=== PATIENT | female | born 1985 | race Caucasian/White ===

== ENCOUNTER 2016-10-15 20:57 | Emergency (ER) | payer MEDICAID, OTHER ==
[~2016-10-15] VITALS: Ht 177.8 cm; Wt 63.0 kg
[~2016-10-15 20:57] MED LIST: HYDR50 PO
[2016-10-15 20:58] VITALS: BP 141/68; PULSE 87; RESP 14; TEMP 98; O2SAT 96
[2016-10-15] MEDS ORDERED: SODIUM CHLOR 0.9% 1000 ML INJ 1,000 ML IV ONE (22:29)
--- NOTE | 2016-10-15 22:43 | PD ---
HPI Chief Complaint: Related Problem Time Seen by Provider: 22:26 Travel History International Travel<30 days: No Contact w/Intl Traveler<30days: No Traveled to known affect area: No History of Present Illness HPI The patient is a whose last menstrual cycle was on July 30, 2016. The patient states she thinks she is approximately 10 weeks . The patient notes her last several days she's had some lower abdominal cramping that radiates to the back as well as brown discharge when she wipes. She denies any actual vaginal bleeding. She denies any dysuria, frequency, or urgency. She does have a history of 2 previous miscarriages as well as a history of previous full-term delivery via section. The patient denies any nausea, vomiting, upper abdominal pain, or diarrhea. Symptoms are mild to moderate, no known alleviating or exacerbating factors. The patient has an appointment next month at the [facility] [employer]. PFSH Past Medical History ?: LMP: 07/30/16 : 2 Para: 1 Miscarriage: 1 Past Surgical History Section: Yes (2005) Tonsillectomy: Yes (1998) Social History Alcohol Use: Yes Tobacco Use: Yes Substance Use: Yes Allergies-Medications (Allergen,Severity, Reaction): Coded Allergies: Augmentin (Verified Allergy, Severe, 10/15/16) Cipro (Verified Allergy, Severe, 10/15/16) Reported Meds & Prescriptions Reported Meds & Active Scripts Active Vistaril 50 Mg Cap (Hydroxyzine Pamoate) 50 Mg Cap 50 Mg PO Q6H PRN Review of Systems Except as stated in HPI: all other systems reviewed are Neg HENT: No: Lightheadedness Cardiovascular: No: Chest Pain or Discomfort Respiratory: No: Shortness of Breath Gastrointestinal: No: Nausea, Vomiting, Diarrhea, Abdominal Pain Genitourinary: Positive: Pelvic Pain, Discharge, No: Urgency, Frequency, Dysuria, Vaginal Bleeding Physical Exam Narrative GENERAL: Awake, alert, pleasant 31-year-old female who appears her stated age and is in no acute respiratory distress. SKIN: Warm and dry. HEAD: Atraumatic. Normocephalic. EYES: No injection or drainage. ENT: No nasal bleeding or discharge. Mucous membranes pink and moist. NECK: Trachea midline. No JVD. GASTROINTESTINAL: Abdomen soft, non-tender, nondistended. No rebound tenderness. No suprapubic tenderness. Genitourinary: The pelvic exam was performed in the presence of a female nurse. External examination reveals no rashes or lesions. Speculum examination reveals an anterior cervix, closed, no obvious blood. Scant thick white discharge in the vaginal vault. Normal exam. Back: No CVA tenderness. MUSCULOSKELETAL: No obvious deformities. No clubbing. No cyanosis. No edema. NEUROLOGICAL: Awake and alert. No obvious cranial nerve deficits. Motor grossly within normal limits. Normal speech. PSYCHIATRIC: Appropriate mood and affect; insight and judgment normal. Data Data Last Documented VS Vital Signs Date Time Temp Pulse Resp B/P Pulse Ox O2 Delivery O2 Flow Rate FiO2 10/15/16 23:29 16 10/15/16 20:58 98.0 87 141/68 96 Room Air Orders Beta Hcg (Quant/Titer) (10/15/16 22:29) Gc And Chlamydia Pcr (10/15/16 22:29) Complete Rh (10/15/16 22:29) Wet Prep Profile (10/15/16 22:29) Urinalysis - C+S If Indicated (10/15/16 22:29) Iv Access Insert/Monitor (10/15/16 22:29) Sodium Chlor 0.9% 1000 Ml Inj (Ns 1000 M (10/15/16 22:29) Ed Urine Pregnancytest Poc (10/15/16 22:29) Us Pelvis (Ques Pr/Ect)W Trans (10/15/16 ) Labs Laboratory Tests Test 10/15/16 10/15/16 10/16/16 23:20 23:25 00:35 Urine Color YELLOW Urine Turbidity CLEAR Urine pH 7.0 Urine Specific [place] 1.011 Urine Protein NEG mg/dL Urine Glucose (UA) NEG mg/dL Urine Ketones NEG mg/dL Urine Occult Blood NEG Urine Nitrite NEG Urine Bilirubin NEG Urine Urobilinogen LESS THAN 2.0 MG/DL Urine Leukocyte Esterase NEG Urine RBC LESS THAN 1 /hpf Urine Squamous Epithelial <1 /hpf Cells Urine Mucus FEW /lpf Microscopic Urinalysis Comment CULT NOT INDICATED Blood Type O POSITIVE Rho(D) Type POSITIVE Human Chorionic Gonadotropin, 10839 MIU/ML Quant Clue Cells (Wet Prep) NONE SEEN Vaginal Trichomonas (Wet Prep) NONE SEEN Vaginal Yeast (Wet Prep) NONE SEEN MDM Medical Decision Making Medical Screen Exam Complete: Yes Emergency Medical Condition: Yes Medical Record Reviewed: Yes Interpretation(s) Ultrasound pelvis reveals single live IUP at 10 weeks 3 days. Laboratory Tests Test 10/15/16 10/15/16 10/16/16 23:20 23:25 00:35 Urine Color YELLOW Urine Turbidity CLEAR Urine pH 7.0 Urine Specific [place] 1.011 Urine Protein NEG mg/dL Urine Glucose (UA) NEG mg/dL Urine Ketones NEG mg/dL Urine Occult Blood NEG Urine Nitrite NEG Urine Bilirubin NEG Urine Urobilinogen LESS THAN 2.0 MG/DL Urine Leukocyte Esterase NEG Urine RBC LESS THAN 1 /hpf Urine Squamous Epithelial <1 /hpf Cells Urine Mucus FEW /lpf Microscopic Urinalysis Comment CULT NOT INDICATED Blood Type O POSITIVE Rho(D) Type POSITIVE Human Chorionic Gonadotropin, 24151 MIU/ML Quant Clue Cells (Wet Prep) NONE SEEN Vaginal Trichomonas (Wet Prep) NONE SEEN Vaginal Yeast (Wet Prep) NONE SEEN Differential Diagnosis Differential diagnosis includes threatened , , vaginitis, cervicitis, PID, UTI, ectopic . Narrative Course IV was established, labs are drawn and sent, and the patient was placed on cardiac telemetry monitoring and continuous pulse oximetry monitoring. Bedside ultrasound was performed, is unable to visualize an IUP, therefore, formal ultrasound was performed. A pelvic exam was performed in the presence of a female nurse and wet prep was sent to lab. The patient is O+, therefore, no indication for RhoGAM. Bedside UA test was positive. Formal beta hCG level was ordered. Ultrasound reveals IUP at 10 weeks 3 days, wet prep is negative. The patient is advised to take a vitamin and a follow-up with her video game creator as scheduled. Return if symptoms worsen or progress. Procedures Procedure Narrative A bedside ultrasound was performed with a curvilinear probe, I was unable to visualize an IUP. The patient tolerated the procedure without difficulty and there was no obvious complications. Diagnosis Primary Impression: Qualified Code: Z33.1 - , unspecified gestational age Patient Instructions: General Instructions Additional Instructions: Please provide the patient a copy of her ultrasound results and lab results at discharge. Follow-up with your video game creator as scheduled. Continue to take a vitamin daily. Return if symptoms worsen or progress. Disposition: 01 DISCHARGE HOME Condition: Stable Frank Bai MD Oct 15, 2016 22:43
[2016-10-15 23:38] LABS: BLOOD, URINE NEG (NEG); GLUCOSE,URINE NEG (NEG); KETONE, URINE NEG (NEG); MUCUS URINE FEW /lpf (OCC); NITRITE,URINE NEG (NEG); SQUAMOUS EPITHELIAL CELL URINE <1 /hpf (0-5); URINE COLOR YELLOW (YELLW/STRAW)
[2016-10-15 23:39] LABS: COMMENT (UR) CULT NOT INDICATED; CULTURE IF INDICATED CULT NOT INDICATED
[2016-10-16 00:10] LABS: BETA HCG QUANT 38180 MIU/ML (0-5)
--- NOTE | 2016-10-16 01:11 | RADRPT ---
EXAM DATE/TIME: 10/16/2016 00:14 [place] COMPARISON: No previous studies available for comparison. INDICATIONS : Cramping with . LAB(S): Beta-hC,180 MEDICAL HISTORY : . SURGICAL HISTORY : Tonsillectomy. ACL repair. ENCOUNTER: Initial ACUITY: 1 day PAIN SCORE: 2/10 LOCATION: Bilateral pelvis MEASUREMENTS: LEFT OVARY: 4.0 x 2.1 x 2.9 cm UTERUS: 10.2 x 7.0 x 10.1 cm ENDOMETRIAL STRIPE: >20 mm RIGHT OVARY: 3.7 x 2.2 x 3.9 cm FINDINGS: UTERUS: There is a single live IUP identified. The crown rump length measured 3.56 cm corresponding to gestat ional age of 10 weeks 3 days. RIGHT OVARY: There is some mild cystic change seen in the right ovary with all the cysts measuring less than 1 cm. There is a complex cyst would be round septation measuring 0.7 cm at the right ovary. LEFT OVARY: Ovary contains no mass or significant cystic lesion. MISCELLANEOUS: No free fluid. CONCLUSION: Single live IUP at 10 weeks 3 days. Polo Baum MD on October 16, 2016 at 1:06 Board Certified Radiologist. This report was verified electronically.
[2016-10-16 04:04] LABS: CHLAMYDIA PCR NOT DETECTED (NOT DETECT); NEISSERIA PCR NOT DETECTED (NOT DETECT)
[2016-10-20] MEDS ORDERED: MACR100C2 PO (08:53)
[2016-11-06] MEDS ORDERED: PRENTAB60 (10:06)
== END 2016-10-16 01:37 | disposition home or self-care (01) ==
LOC: NEPE 20:57
DX: O26.891 Other specified pregnancy related conditions, first trimester (principal); R10.2 Pelvic and perineal pain; Z3A.10 10 weeks gestation of pregnancy
CPT/HCPCS: 76700; 76817; 81001; 84702; 84703; 86901; 87210; 87491; 87591; 99284; J7030

== ENCOUNTER → 2016-10-30 | Outpatient (CLI) | payer OTHER ==
[~2016-10-30] MED LIST changes: -HYDR50 PO; +MACR100C2 PO; +PRENTAB60
== END ==
LOC: HPND 08:32
PROVIDERS: ATTEND Obstetrics & Gynecology
DX: O34.01 Maternal care for unspecified congenital malformation of uterus, first trimester (principal); Z3A.13 13 weeks gestation of pregnancy
CPT/HCPCS: 76801; 76817

== ENCOUNTER 2016-11-20 12:16 | Emergency (ER) | payer OTHER ==
[~2016-11-20 12:16] MED LIST changes: -MACR100C2 PO
[2016-11-20 13:11] VITALS: BP 100/53; PULSE 87
[2016-11-20 13:12] VITALS: RESP 20; TEMP 98
--- NOTE | 2016-11-20 13:13 | PD ---
HPI Chief Complaint Sharp lower abdominal pain Date Seen: Nov 20, 2016 Time Seen: 12:55 (Walter Solis MD R1) Travel History International Travel<30 Days: No Contact w/Intl Traveler<30Days: No Known Affected Area: No (Walter Solis MD) History of Present Illness HPI Patient is a 31 year old at 15/6 weeks gestation presents to OB ED with complaints of sharp lower abdominal pain beginning last Thursday. She denies any LOF, VB, or any other vaginal discharge. Denies vaginal irritation. She does report sexual intercourse about 4 days ago which was after the onset of her abdominal pain. She reports her pain following intercourse has not worsened. Denies dysuria or hematuria. Para: 1 : 4 Miscarriage: 2 (Walter Solis MD) History Past Medical History Medical History: Denies Significant Hx (Walter Solis MD) Obstetric History Obstetric History First ending in section on 09/07/2005 at 36.5 weeks gestation to a 8 lbs 6.5 oz male, indication for she states was fetus with lymphangioma (Walter Solis MD) Past Surgical History Narrative Surgical ACL repair (Walter Solis MD) Family History Family History: Negative (Walter Solis MD) Social History Alcohol Use: Yes (Reports etoh intake before learning she was ; no intake afterwards) Tobacco Use: Yes (Quit smoking once finding out she was ) Substance Abuse: No (Walter Solis MD R1) Allergies-Medications (Allergen,Severity, Reaction): Coded Allergies: Augmentin (Verified Allergy, Severe, 11/06/16) Cipro (Verified Allergy, Severe, 11/06/16) Home Meds Reported Medications Vit W/ Docusate-Fe Fu ( 19)1 Tab Tab 11/06/16 Review of Systems Except as stated in HPI: all other systems reviewed are Neg (Walter Solis MD R1) Physical Exam Narrative GENERAL: Well-nourished, well-developed patient. SKIN: Warm and dry. HEAD: Normocephalic and atraumatic. EYES: No scleral icterus. No injection or drainage. ENT: No nasal drainage noted. Mucous membranes pink. Airway patent. NECK: Supple, trachea midline. No JVD. CARDIOVASCULAR: Regular rate and rhythm without murmurs, gallops, or rubs. RESPIRATORY: Breath sounds equal bilaterally. No accessory muscle use. BREASTS: Bilateral exam showed no masses , no retractions, no nipple discharge. ABDOMEN/GI: Abdomen soft, non-tender, bowel sounds present, no rebound, no guarding Gravid to ~16 weeks size GENITOURINARY: External Genitalia: normal and intact in appearance Cervix: thick and closed Dilatation: [-] Effacement: [-] Station: [-] Presentation: [-] Membranes: [-] Uterine Contractions: [-] FHT's: Category: [-] Baseline: [-] Reactive: [-] Variability: [-] Decels: [-] EXTREMITIES: No cyanosis or edema. BACK: Nontender without obvious deformity. No CVA tenderness. NEUROLOGICAL: Awake and alert. Motor and sensory grossly within normal limits. Normal speech. (Walter Solis MD R1) Data Data Vital Signs Reviewed: Yes Orders Vital Signs (Adult) .ON ADMISSION (11/20/16 13:00) ^ Labor Status (11/20/16 13:00) Urinalysis - C+S If Indicated (11/20/16 13:00) (Walter Solis MD R1) [facility] Medical Record Reviewed: Yes Plan Patient is a 31 year old at 15/6 weeks gestation based on an ultrasound on 10/30/16 presented with complaints of sharp lower abdominal pain beginning last Jason. 1. IUP, round ligament pain - Ultrasound from 10/30/2016 showing a GA of 12/6 weeks, no gross anomalies , no uterine masses or abnormalities, b/l adnexa normal, no free fluid - Ultrasound performed in ED showing a BPD c/w 15/6 weeks gestation, FHR of 150 bpm - Cervix is closed and thick - UA is clean - GC & Chlamydia - Advised to use Tylenol prn pain - Encouraged oral hydration - [facility] for continued routine care sdw Dr. Warren (Walter Solis MD R1) Diagnosis Diagnosis: Primary Impression: Round ligament pain Additional Impression: Intrauterine Disposition: 01 DISCHARGE HOME Condition: Stable Patient Instructions: Abdominal Pain in (ED), Early Labor Signs (ED) , Urinary Tract Infection in (ED), General Instructions Addendum Remarks I rounded on the patient. I rounded with the resident. I reviewed the resident' s assessment and plan of care for this patient. I am in agreement with the plan of care for this patient. GC Chlamydia negative (Annabelle Ardon MD) Walter Solis MD R1 Nov 20, 2016 13:13 Annabelle Ardon MD Nov 21, 2016 04:29
[2016-11-20 14:24] LABS: BLOOD, URINE NEG (NEG); GLUCOSE,URINE NEG (NEG); KETONE, URINE NEG (NEG); MUCUS URINE FEW /lpf (OCC); NITRITE,URINE NEG (NEG); SQUAMOUS EPITHELIAL CELL URINE 3 /hpf (0-5); URINE COLOR YELLOW (YELLW/STRAW)
[2016-11-20 14:27] LABS: COMMENT (UR) CULT NOT INDICATED; CULTURE IF INDICATED CULT NOT INDICATED
[2016-11-20 16:31] LABS: CHLAMYDIA PCR NOT DETECTED (NOT DETECT); NEISSERIA PCR NOT DETECTED (NOT DETECT)
== END 2016-11-20 14:23 | disposition home or self-care (01) ==
LOC: HOBED 12:16
DX: O26.892 Other specified pregnancy related conditions, second trimester (principal); R10.2 Pelvic and perineal pain; Z3A.15 15 weeks gestation of pregnancy
CPT/HCPCS: 76815; 81001; 87491; 87591

== ENCOUNTER 2016-12-22 16:21 | Emergency (ER) | payer OTHER ==
--- NOTE | 2016-12-22 16:39 | PD ---
HPI Chief Complaint dizziness, headache, "heart fluttering" Date Seen: December 22, 2016 (Brennan Rowe MD R2) Travel History International Travel<30 Days: No Contact w/Intl Traveler<30Days: No (Brennan Rowe MD R2) History of Present Illness HPI Ms. Darby is a 31 yo at 20 1/7 weeks (KATHIA ) who presents with complaints of dizziness, headache, and "heart fluttering." Patient states that she has had a headache that has been predominately constant for the past week; it is posterior and left sided. Patient also states that she is having increasing dizziness/lightheadedness since Thursday. Patient states that this lightheadedness can occur at any time and not just when rising from seated position. Patient states that she had these symptoms previously when standing from seated position, but that she feels it is worsening and can occur at any time. Patient states that this weekend she felt "heart fluttering" and sweating along with lightheadedness, and was worried she might have a syncopal episode. Patient states that she believes that she has been having adequate intake of fluids and food. Patient denies vaginal bleeding or loss of vaginal fluid. Patient states that she is able to feel her fetus move. Regarding heart fluttering, patient states that she felt her heart pounding but it did not beat fast. Patient denies history of cardiovascular disease. No shortness of breath or leg swelling. No nausea/vomiting, dysuria, or other symptoms reported. records reviewed: labs WNL. US at 12 6/7 weeks without abnormality. Para: 1 : 4 Miscarriage: 2 (Brennan Rowe MD R2) History Past Medical History Narrative Medical Patient states that she gets hypoglycemic (Brennan Rowe MD R2) Obstetric History Obstetric History G4 0121 One vaginal delivery at 36.5 weeks 2 miscarriages (Brennan Rowe MD R2) Past Surgical History Narrative Surgical CS x1 11 years ago- planned due fetus anomalies- lymphangioma and cystic hydroma (Brennan Rowe MD R2) Family History Narrative Family History Adopted Family History: Negative (Brennan Rowe MD R2) Social History Alcohol Use: No Tobacco Use: No Substance Abuse: No (Brennan Rowe MD R2) Allergies-Medications (Allergen,Severity, Reaction): Coded Allergies: Augmentin (Verified Allergy, Severe, 12/04/16) Cipro (Verified Allergy, Severe, 12/04/16) Home Meds Reported Medications Vit W/ Docusate-Fe Fu ( 19)1 Tab Tab 11/06/16 Review of Systems HENT: Headaches Cardiovascular: Palpitations (Brennan Rowe MD R2) Physical Exam 117/59 HR 96 Afebrile RR 18 Narrative GENERAL: Well-nourished, well-developed patient. SKIN: Warm and dry. HEAD: Normocephalic and atraumatic. EYES: No scleral icterus. No injection or drainage. ENT: No nasal drainage noted. Mucous membranes pink. Airway patent. NECK: Supple, trachea midline. No JVD. CARDIOVASCULAR: Regular rate and rhythm without murmurs RESPIRATORY: Breath sounds equal bilaterally. No accessory muscle use. EXTREMITIES: No cyanosis or edema. NEUROLOGICAL: Awake and alert. Motor and sensory function grossly within normal limits. ABDOMEN/GI: Abdomen soft, non-tender, bowel sounds present, no rebound, no guarding Gravid FHT's: [id number] (Brennan Rowe MD R2) MDM Medical Record Reviewed: Yes Narrative Course / MDM 31 yo at 20 1/7 weeks (KATHIA ) who presents with complaints of dizziness, headache, and "heart fluttering." -Reassuring physical exam- no cardiac or neurological abnormalities Plan: Discussed with patient that her symptoms are likely secondary to 2nd trimester physiologic changes of . Patient reassured, and given counselling regarding safe medications in for headache. Patient will follow-up with Dafne Walls on as scheduled (Brennan Rowe MD R2) Attending Attestation The exam, history, and the medical decision-making described in the above note were completed with the assistance of the resident provider. I reviewed and agree with the findings presented. I attest that I had a [id number] encounter with the patient on the same day, and personally performed and documented my assessment and findings in the medical record. discussed physiologic changes of . discussed adequate hydration with water, eating meal or snack with protein/fat every 3-4 hours, OTC meds safe in (Maddy Ortega MD) Diagnosis Diagnosis: Primary Impression: Headache in Additional Impression: Dizziness Disposition: 01 DISCHARGE HOME Condition: Stable Patient Instructions: General Instructions Brennan Rowe MD R2 December 22, 2016 16:39 Maddy Ortega MD December 22, 2016 17:32
== END 2016-12-22 17:24 | disposition home or self-care (01) ==
LOC: HOBED 16:21
DX: O26.892 Other specified pregnancy related conditions, second trimester (principal); R51 Headache; R42 Dizziness and giddiness; I49.8 Other specified cardiac arrhythmias
CPT/HCPCS: 99284

== ENCOUNTER 2017-01-31 22:01 | Emergency (ER) | payer OTHER ==
--- NOTE | 2017-01-31 22:58 | PD ---
HPI Chief Complaint Upper abdominal cramping Date Seen: Jan 31, 2017 Time Seen: 22:45 Travel History International Travel<30 Days: No Contact w/Intl Traveler<30Days: No Known Affected Area: No History of Present Illness HPI 31-year-old 4 para 1 AB 2 at 26+ weeks gestation with an EDC of 05/06/17 who comes tonight with a 2 hour history of upper abdominal cramping. She denies any bleeding, discharge, leakage of fluid. No nausea vomiting or diarrhea. The cramping was not alleviated by hydration. Para: 1 : 4 Miscarriage: 2 History Past Medical History Medical History: Denies Significant Hx Obstetric History Obstetric History Prior 35 week for cystic hygroma, desires Past Surgical History Narrative Surgical Knee, tonsils, Family History Family History: Negative Social History Alcohol Use: No Tobacco Use: No Substance Abuse: No Allergies-Medications (Allergen,Severity, Reaction): Coded Allergies: Augmentin (Verified Allergy, Severe, 01/28/17) Cipro (Verified Allergy, Severe, 01/28/17) Home Meds Reported Medications Vit W/ Docusate-Fe Fu ( 19)1 Tab Tab 11/06/16 Review of Systems Except as stated in HPI: all other systems reviewed are Neg Physical Exam Narrative GENERAL: Well-nourished, well-developed patient. SKIN: Warm and dry. HEAD: Normocephalic and atraumatic. EYES: No scleral icterus. No injection or drainage. ENT: No nasal drainage noted. Mucous membranes pink. Airway patent. NECK: Supple, trachea midline. No JVD. CARDIOVASCULAR: Regular rate and rhythm without murmurs, gallops, or rubs. RESPIRATORY: Breath sounds equal bilaterally. No accessory muscle use. ABDOMEN/GI: Abdomen soft, non-tender, bowel sounds present, no rebound, no guarding Gravid to [-] weeks size Fundal Height: [25-] GENITOURINARY: External Genitalia: intact and normal in appearance BUS glands: [-] Cervix: [-] Dilatation: [Closed-] Effacement: [-Long] Station: [-High] Presentation: [-] Membranes: [intact ] Uterine Contractions: [None-] FHT's: Category: [1-] Baseline: [137-] Reactive: [-] Variability: [-] Decels: [-] EXTREMITIES: No cyanosis or edema. BACK: Nontender without obvious deformity. No CVA tenderness. NEUROLOGICAL: Awake and alert. Motor and sensory grossly within normal limits. Five out of 5 muscle strength in all muscle groups. Normal speech. Data Data Vital Signs Reviewed: Yes MDM Medical Record Reviewed: Yes Narrative Course / MDM Assessment: 26+ week with upper abdominal cramping, no evidence of acute abdominal symptoms or labor Plan: Continue to monitor for any additional symptoms. Continue routine care visits Diagnosis Diagnosis: Primary Impression: 26 weeks gestation of Additional Impression: Abdominal pain during in second trimester Disposition: 01 DISCHARGE HOME Condition: Good Mike Willams MD Jan 31, 2017 22:58
== END 2017-02-01 10:03 | disposition home or self-care (01) ==
LOC: HOBED 22:01
DX: O26.892 Other specified pregnancy related conditions, second trimester (principal); R10.9 Unspecified abdominal pain; Z3A.26 26 weeks gestation of pregnancy
CPT/HCPCS: 99281

== ENCOUNTER 2017-02-25 04:14 | Emergency (ER) | payer OTHER ==
--- NOTE | 2017-02-25 05:03 | PD ---
HPI Chief Complaint Passed mucous earlier this am, some cramping Date Seen: Feb 25, 2017 Time Seen: 04:57 Travel History International Travel<30 Days: No Contact w/Intl Traveler<30Days: No Known Affected Area: No History of Present Illness HPI 31 yo at 30 weeks gestation who woke up, went to bathroom and noticed some mucous passed into the toilet. Patient c/o mild cramping at home x 2 hours, none presently. Previous episode of cramping last week. No h/o delivery. Para: 1 : 4 Miscarriage: 1 History Past Medical History Medical History: Denies Significant Hx Obstetric History Obstetric History 8#4oz Past Surgical History Narrative Surgical tonsils knee Family History Family History: Negative Social History Alcohol Use: No Tobacco Use: No Substance Abuse: No Allergies-Medications (Allergen,Severity, Reaction): Coded Allergies: Augmentin (Verified Allergy, Severe, 02/12/17) Cipro (Verified Allergy, Severe, 02/12/17) Home Meds Reported Medications Vit W/ Docusate-Fe Fu ( 19)1 Tab Tab 11/06/16 Review of Systems Except as stated in HPI: all other systems reviewed are Neg Physical Exam Narrative GENERAL: Well-nourished, well-developed patient. SKIN: Warm and dry. HEAD: Normocephalic and atraumatic. EYES: No scleral icterus. No injection or drainage. ENT: No nasal drainage noted. Mucous membranes pink. Airway patent. NECK: Supple, trachea midline. No JVD. CARDIOVASCULAR: Regular rate and rhythm without murmurs, gallops, or rubs. RESPIRATORY: Breath sounds equal bilaterally. No accessory muscle use. BREASTS: Bilateral exam showed no masses , no retractions, no nipple discharge. ABDOMEN/GI: Abdomen soft, non-tender, bowel sounds present, no rebound, no guarding Gravid to [-] weeks size Fundal Height: [-30] GENITOURINARY: External Genitalia: intact and normal in appearance BUS glands: [-nl] Cervix: [-posterior] Dilatation: [-closed] Effacement: [-o%] Station: [-3-] Presentation: [-vwertex, ballotable] Membranes: [intact ] Uterine Contractions: [none-] FHT's: Category: [1-] Baseline: [150-] Reactive: [-mod] Variability: [mod-] Decels: [-absent] EXTREMITIES: No cyanosis or edema. BACK: Nontender without obvious deformity. No CVA tenderness. NEUROLOGICAL: Awake and alert. Motor and sensory grossly within normal limits. Five out of 5 muscle strength in all muscle groups. Normal speech. Data Data Vital Signs Reviewed: Yes MDM Plan 31 yo with passage of mucous at home. H/o cramping earlier but that has resolved. Exam reveals no discharge, cervix closed, no contractions Discharge home with PTL warnings to return Diagnosis Diagnosis: Primary Impression: 30 weeks gestation of Additional Impressions: Vaginal discharge during in third trimester Previous delivery affecting , antepartum Disposition: 01 DISCHARGE HOME Jojo Parada MD Feb 25, 2017 05:03
[2017-03-04] MEDS ORDERED: ZANT150T2 PO (09:13)
== END 2017-02-25 05:22 | disposition home or self-care (01) ==
LOC: HOBED 04:14
DX: O26.893 Other specified pregnancy related conditions, third trimester (principal); N89.8 Other specified noninflammatory disorders of vagina; Z3A.30 30 weeks gestation of pregnancy
CPT/HCPCS: 99282

== ENCOUNTER 2017-03-19 13:25 | Emergency (ER) | payer OTHER ==
[~2017-03-19] VITALS: Ht 175.3 cm; Wt 76.7 kg
[~2017-03-19 13:25] MED LIST changes: +ZANT150T2 PO
--- NOTE | 2017-03-19 14:01 | PD ---
HPI Chief Complaint Leakage of fluid Date Seen: Mar 19, 2017 Time Seen: 14:00 Travel History International Travel<30 Days: No Contact w/Intl Traveler<30Days: No Known Affected Area: No History of Present Illness HPI Patient is a 31-year-old at 33 weeks and 1 day who is presenting with possible leakage of fluid. She reports that she was standing earlier today and noticed that her underwear, legs, feet were wet. She change her underwear noticed that again became wet. She put on a pad and noted that it was moist. She denies any contractions, vaginal bleeding. She reports movement. She does report that she was having some irregular contractions last night about every 20 minutes, but then she went for walk in a cup better. She reports some nausea but otherwise review of systems is negative. Patient has a history of for mass on her previous fetus. She does have a recent ultrasound that shows normal anatomy for this . 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 Her was intubated before the cut the cord. After removal of the mass her infant was 8 pounds and 6 -1/2 ounces. Past Surgical History Narrative Surgical tonsils knee Family History Family History: Negative Social History Alcohol Use: No Tobacco Use: No Substance Abuse: No Allergies-Medications (Allergen,Severity, Reaction): Coded Allergies: Augmentin (Verified Allergy, Severe, 03/19/17) Cipro (Verified Allergy, Severe, 03/19/17) Home Meds Active Scripts Ranitidine (Zantac)150 Mg [id number] Mg PO BID #60 TAB Ref 6 Prov:Monse Walls 03/04/17 Reported Medications Vit W/ Docusate-Fe Fu ( 19)1 Tab Tab 11/06/16 Review of Systems General / Constitutional: No: Fever, Chills Eyes: No: Diploplia, Blurred Vision, Visual changes HENT: No: Headaches Cardiovascular: No: Chest Pain or Discomfort, Edema Respiratory: No: Short of Breath Gastrointestinal: Nausea, No: Vomiting, Abdominal Pain Genitourinary: No: Dysuria Musculoskeletal: No: Cramping, Edema Physical Exam Blood pressure 130/81, pulse 112, respiratory rate 18, temperature 98.5 Narrative GENERAL: Well-nourished, well-developed patient. SKIN: Warm and dry. HEAD: Normocephalic and atraumatic. EYES: No scleral icterus. No injection or drainage. ENT: No nasal drainage noted. Mucous membranes pink. Airway patent. NECK: Supple, trachea midline. No JVD. CARDIOVASCULAR: Regular rate and rhythm without murmurs, gallops, or rubs. RESPIRATORY: Breath sounds equal bilaterally. No accessory muscle use. ABDOMEN/GI: Abdomen soft, non-tender, bowel sounds present, no rebound, no guarding Gravid to 33 weeks size FHT's: Category: Category 1 Baseline: 140 Reactive: reactive Variability: yes Decels: 1 variable EXTREMITIES: No cyanosis or edema. BACK: Nontender without obvious deformity. No CVA tenderness. NEUROLOGICAL: Awake and alert. Motor and sensory grossly within normal limits. Five out of 5 muscle strength in all muscle groups. Normal speech. Data Data Vital Signs Reviewed: Yes MDM Plan Patient is a 31-year-old at 33 weeks and 1 day who is presenting with possible leakage of fluid. 1. r/o LOF Amnisure negative Monitor vital signs - wnl Monitor labor status - no CTX noted Monitor heart tracing - category 1 Encourage by mouth hydration Diagnosis Diagnosis: Primary Impression: Vaginal discharge during in third trimester Additional Impression: with 33 completed weeks gestation Ruled Out: labor Disposition: DISCHARGE HOME Condition: Good Micah Palumbo MD R1 Mar 19, 2017 14:01
== END 2017-03-19 15:11 | disposition home or self-care (01) ==
LOC: HOBED 13:25
DX: O26.893 Other specified pregnancy related conditions, third trimester (principal); N89.8 Other specified noninflammatory disorders of vagina; R11.0 Nausea; Z3A.33 33 weeks gestation of pregnancy; Z79.899 Other long term (current) drug therapy; Z88.1 Allergy status to other antibiotic agents
CPT/HCPCS: 59025; 84112

== ENCOUNTER 2017-03-20 18:47 | Emergency (ER) | payer OTHER ==
--- NOTE | 2017-03-20 19:40 | PD ---
HPI Chief Complaint Possible leakage of fluid Date Seen: Mar 20, 2017 Time Seen: 19:20 Travel History International Travel<30 Days: No Contact w/Intl Traveler<30Days: No Known Affected Area: No History of Present Illness HPI 34-year-old 2 para 1 at 33 weeks gestation who comes today with a complaint of thinking her water broke. She states that she just felt like she was more wet down there than usual. She denies any contractions, bleeding. She reports good movement. Para: 1 : 2 Last Menstrual Period: Mar 20, 2017 History Past Medical History Medical History: Denies Significant Hx Obstetric History Obstetric History Prior with a child affected by cystic hygroma Uncomplicated course Advanced maternal age Past Surgical History Narrative Surgical , knee surgery, tonsillectomy Family History Family History: Negative Social History Alcohol Use: No Tobacco Use: No Substance Abuse: No Allergies-Medications (Allergen,Severity, Reaction): Coded Allergies: Augmentin (Verified Allergy, Severe, 03/19/17) Cipro (Verified Allergy, Severe, 03/19/17) Home Meds Active Scripts Ranitidine (Zantac)150 Mg Kun234 Mg PO BID #60 TAB Ref 6 Prov:Monse Walls 03/04/17 Reported Medications Vit W/ Docusate-Fe Fu ( 19)1 Tab Tab 11/06/16 Review of Systems Except as stated in HPI: all other systems reviewed are Neg Physical Exam Narrative GENERAL: Well-nourished, well-developed patient. SKIN: Warm and dry. HEAD: Normocephalic and atraumatic. EYES: No scleral icterus. No injection or drainage. ENT: No nasal drainage noted. Mucous membranes pink. Airway patent. NECK: Supple, trachea midline. No JVD. CARDIOVASCULAR: Regular rate and rhythm without murmurs, gallops, or rubs. RESPIRATORY: Breath sounds equal bilaterally. No accessory muscle use. ABDOMEN/GI: Abdomen soft, non-tender, bowel sounds present, no rebound, no guarding Gravid to [-] weeks size Fundal Height: [-] GENITOURINARY: External Genitalia: intact and normal in appearance BUS glands: [-] Cervix: [-] Dilatation: [-] Effacement: [-] Station: [-] Presentation: [-] Membranes: [intact by amnisure] Uterine Contractions: [None-] FHT's: Category: [1-] Baseline: [-] Reactive: [-] Variability: [-] Decels: [-] EXTREMITIES: No cyanosis or edema. BACK: Nontender without obvious deformity. No CVA tenderness. NEUROLOGICAL: Awake and alert. Motor and sensory grossly within normal limits. Five out of 5 muscle strength in all muscle groups. Normal speech. Data Data Vital Signs Reviewed: Yes MDM Medical Record Reviewed: Yes Narrative Course / MDM Assessment: Negative evaluation for suspected rupture membranes Plan: Continue routine care Diagnosis Diagnosis: Primary Impression: Vaginal discharge during in third trimester Disposition: 01 DISCHARGE HOME Mike Willams MD Mar 20, 2017 19:40
== END 2017-03-20 19:42 | disposition home or self-care (01) ==
LOC: HOBED 18:47
DX: O26.893 Other specified pregnancy related conditions, third trimester (principal); N89.8 Other specified noninflammatory disorders of vagina; Z3A.33 33 weeks gestation of pregnancy
CPT/HCPCS: 59025; 84112

== ENCOUNTER 2017-04-18 04:18 | Inpatient (IN) | payer OTHER ==
[~2017-04-18] VITALS: Ht 175.3 cm; Wt 78.0 kg
[2017-04-18] VITALS (7 sets, daily range): BP systolic 97–120; BP diastolic 51–80; PULSE 80–109; RESP 14–18; TEMP 97.8–97.9
[2017-04-18] MEDS ORDERED: LACTATED RINGER'S 1000 ML INJ 1,000 ML IV PRN (09:11)
[2017-04-18] MEDS ORDERED: LIDOCAINE HCL 1% 50 ML VIAL INFIL PRN (09:15)
[2017-04-18] MEDS ORDERED: CITRIC ACID-SODIUM CITRATE LIQ 30 ML UDC PO SCH (09:15)
[2017-04-18] MEDS ORDERED: SODIUM CHLORID 0.9% 500 ML INJ 500 ML IV PRN (09:15)
[2017-04-18] MEDS ORDERED: LIDOCAINE HCL 1% 50 ML VIAL I-DERMAL PRN (09:15)
[2017-04-18] MEDS ORDERED: MINERAL OIL 10 ML VIAL TOPICAL PRN (09:15)
--- NOTE | 2017-04-18 09:20 | HHI.HP ---
History & Physical H&P Patient Name: Ami Darby Unit Number: [id number] Date of : 1985 Patient Status: Registered Emergency Room Attending Doctor: Mike Willams MD [facility] HPI Chief Complaint 31-year-old 4 para 1 AB 2 at 37+ weeks gestation who presented today with increasing contraction activity. After observation she was making cervical change and will be admitted for trial of labor after . The the risks benefits and alternatives were again reviewed with the patient. Date Seen: Apr 18, 2017 Time Seen: 09:15 Travel History International Travel<30 Days: No Contact w/Intl Traveler<30Days: No Known Affected Area: No History of Present Illness Weeks Gestation: 37 Para: 1 : 4 Miscarriage: 2 History (Limited) History Past Medical History Medical History: Denies Significant Hx Past Surgical History Narrative Surgical , tonsillectomy Family History Family History: Negative Social History Alcohol Use: No Tobacco Use: No Substance Abuse: No Allergies-Medications Allergies-Medications (Allergen,Severity, Reaction): Coded Allergies: amoxicillin (Verified Allergy, Severe, 04/14/17) ciprofloxacin (Verified Allergy, Severe, 04/14/17) clavulanic acid (Verified Allergy, Severe, 04/14/17) Home Meds Active Scripts Ranitidine (Zantac) 150 Mg Tab, 150 MG PO BID for Reduce Stomach Acid, #60 TAB 6 Refills Prov:Monse Walls 03/04/17 Reported Medications Vit W/ Docusate-Fe Fu ( 19) 1 Tab Tab 11/06/16 ROS Review of Systems Except as stated in HPI: all other systems reviewed are Neg Physical Exam Physical Exam Narrative GENERAL: Well-nourished, well-developed patient. SKIN: Warm and dry. HEAD: Normocephalic and atraumatic. EYES: No scleral icterus. No injection or drainage. ENT: No nasal drainage noted. Mucous membranes pink. Airway patent. NECK: Supple, trachea midline. No JVD. CARDIOVASCULAR: Regular rate and rhythm without murmurs, gallops, or rubs. RESPIRATORY: Breath sounds equal bilaterally. No accessory muscle use. BREASTS: Bilateral exam showed no masses , no retractions, no nipple discharge. ABDOMEN/GI: Abdomen soft, non-tender, bowel sounds present, no rebound, no guarding Gravid to [-] weeks size Fundal Height: [-37] GENITOURINARY: External Genitalia: intact and normal in appearance BUS glands: [-] Cervix: [-] Dilatation: [3-] Effacement: [-90] Station: [0-] Presentation: [-Vertex] Membranes: [intact ] Uterine Contractions: [-] FHT's: Category: [1-] Baseline: [-] Reactive: [-] Variability: [-] Decels: [-] EXTREMITIES: No cyanosis or edema. BACK: Nontender without obvious deformity. No CVA tenderness. NEUROLOGICAL: Awake and alert. Motor and sensory grossly within normal limits. Five out of 5 muscle strength in all muscle groups. Normal speech. Data Data Data Vital Signs Reviewed: Yes Group B Strep: Negative MDM MDM Medical Record Reviewed: Yes Narrative Course / MDM Assessment: 31-year-old 4 para 1 at 37+ weeks gestation with prior C- section in early labor Plan: Admit for trial of labor after management. Mike Willams MD Apr 18, 2017 09:19 Mike Willams MD Apr 18, 2017 09:20
[2017-04-18] MEDS ORDERED: SODIUM CHLOR 0.9% 1000 ML INJ 1,000 ML IV PRN (09:31)
[2017-04-18] MEDS ORDERED: LACTATED RINGER'S 1000 ML INJ 1,000 ML IV SCH (10:00)
[2017-04-18] MEDS ORDERED: OXYTOCIN 30 UNITS-500ML PREMIX 500 ML IV ONE (10:00)
[2017-04-18 10:12] LABS: AUTOMATED NEUTROPHIL # 12.2 TH/MM3 (1.8-7.7); BASOPHIL % 0.2 % (0.0-2.0); EOSINOPHIL % 0.3 % (0.0-4.0); HEMATOCRIT 35.7 % (35.0-46.0); LYMPH % 10.3 % (9.0-44.0); LYMPHOCYTE # 1.5 TH/MM3 (1.0-4.8); MEAN CELL VOLUME 86.6 FL (80.0-100.0); MEAN CORPUSCULAR HEMOGLOBIN 28.5 PG (27.0-34.0); MEAN CORPUSCULAR HGB CONC 32.9 % (32.0-36.0); MONO % 5.9 % (0.0-8.0); NEUT % 83.3 % (16.0-70.0); PLATELET COUNT 144 TH/MM3 (150-450); RED BLOOD COUNT 4.13 MIL/MM3 (4.00-5.30); RED CELL DISTRIBUTION WIDTH 13.3 % (11.6-17.2); WHITE BLOOD COUNT 14.6 TH/MM3 (4.0-11.0)
[2017-04-18 10:13] LABS: HEMO FLAGS AUTO DIFF
[2017-04-18 10:47] LABS: BANDS 2 % (0-6); MYELOCYTES 1 % (0-0); POLYS (SEG NEUTROPHILS) 86 % (16-70); WBC DIFF SAMPLE 100
[2017-04-18 10:48] LABS: OVALOCYTES 1+ (NORMAL); PLATELET ESTIMATE SMEAR NORMAL (NORMAL); PLATELET MORPHOLOGY NORMAL (NORMAL); SCAN/DIFF FINAL DIFF MANUAL
[2017-04-18 11:03] LABS: BLOOD, URINE NEG (NEG); COMMENT (UR) CULT NOT INDICATED; CULTURE IF INDICATED CULT NOT INDICATED; GLUCOSE,URINE NEG (NEG); KETONE, URINE 10 mg/dL (NEG); MUCUS URINE FEW /lpf (OCC); NITRITE,URINE NEG (NEG); PH, URINE 6.5 (5.0-8.5); SQUAMOUS EPITHELIAL CELL URINE <1 /hpf (0-5); URINE COLOR LIGHT-YELLOW (YELLW/STRAW)
--- NOTE | 2017-04-18 19:34 | HHI.PR ---
[employer] MANAGER Note Note OB Subjective Subjective Subjective Patient has been walking and using the birthing ball for most of today. Notes UC when walking only. Comfortable at this time. OB Objective Objective Vital Signs Vital Signs Date Time Temp Pulse Resp B/P (MAP) Pulse Ox O2 Delivery O2 Flow Rate FiO2 04/18/17 19:00 97.8 14 04/18/17 19:00 91 99/57 (71) 04/18/17 16:08 97.9 18 04/18/17 16:08 80 97/51 (66) 04/18/17 15:14 18 04/18/17 15:06 99 101/58 (72) 04/18/17 13:33 97.9 04/18/17 13:33 18 04/18/17 13:32 109 120/80 (93) Objective SVE: 80/-2 vtx, intact TOCO: No UC FHT: 130s baseline, +accelerations, no decelerations, mod variability CAT I Weeks Gestation: 37 Gest Age Assessed Date: Apr 18, 2017 OB Assessment/Plan Assessment/Plan Assessment and Plan 37 weeks admitted in latent labor @ 3cm, now only 4cm on my exam. Minimal cervical change throughout the day, patient is not in labor at this time. Discussed gestational age of 37 weeks and FIDENCIO. Will not induce labor and desire to hold off on Pitocin augmentation unless indicated or ROM. CAT I FHT Patient request to walk more this evening and will re-evaluate to see if any progress to active labor. Daphnie Milian MD Apr 18, 2017 7:34 pm
--- NOTE | 2017-04-18 20:43 | HHI.PR ---
PLACEMENT INTERVIEWER Note Note Patient still without UC minimal cervical change since admission from 3 to 4cm for entire day 37 weeks, FIDENCIO. Patient understands cannot induce labor at this time. Reviewed active labor Patient desires d/c and will return when UC resume and cervical change. CAT I FHT Daphnie Milian MD Apr 18, 2017 20:43
[2017-04-20] MEDS ORDERED: ACYC800T PO (13:49)
[2017-04-24] MEDS ORDERED: TERC0.8C VAGINAL (11:54)
== END 2017-04-18 20:53 | disposition home or self-care (01) | DRG 781 ==
LOC: HOBED 04:18 → H2EB 09:17
PROVIDERS: ADMIT Obstetrics & Gynecology; ATTEND Obstetrics & Gynecology
DX: O26.893 Other specified pregnancy related conditions, third trimester (principal); O34.219 Maternal care for unspecified type scar from previous cesarean delivery; Z3A.37 37 weeks gestation of pregnancy
CPT/HCPCS: 59025; 81001; 85007; 85027; 86900; 86901; J7120

== ENCOUNTER 2017-04-29 01:30 | Emergency (ER) | payer OTHER ==
[~2017-04-29 01:30] MED LIST changes: +ACYC800T PO; +TERC0.8C VAGINAL
--- NOTE | 2017-04-29 02:10 | PD ---
HPI Chief Complaint Actions Date Seen: Apr 29, 2017 Time Seen: 02:06 Travel History International Travel<30 Days: No Contact w/Intl Traveler<30Days: No Known Affected Area: No History of Present Illness HPI 31-year-old who is at 39 weeks gestation today who complains of contractions for the past 8 hours, irregular nature, with moderate intensity. Patient was admitted last week with a cervix of 4 cm she was kept overnight with no cervical change and was discharged home. Last cervical exam was 3-4 cm in office last Thursday. Patient's had a previous section but desires a for this and has come in for a consult. 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 Prov:Cherrie Ireland 04/24/17 Acyclovir (Acyclovir) 800 Mg Tab, 800 MG PO DAILY for Mgmt Viral Infection for 30 Days, TAB 0 Refills Prov:Cherrie Ireland 04/20/17 Ranitidine (Zantac) 150 Mg Tab, 150 MG PO BID for Reduce Stomach Acid, #60 TAB 6 Refills Prov:Monse Walls 03/04/17 Reported Medications Vit W/ Docusate-Fe Fu ( 19) 1 Tab Tab 11/06/16 Review of Systems Except as stated in HPI: all other systems reviewed are Neg Physical Exam Narrative GENERAL: Well-nourished, well-developed patient. SKIN: Warm and dry. HEAD: Normocephalic and atraumatic. EYES: No scleral icterus. No injection or drainage. ENT: No nasal drainage noted. Mucous membranes pink. Airway patent. NECK: Supple, trachea midline. No JVD. CARDIOVASCULAR: Regular rate and rhythm without murmurs, gallops, or rubs. RESPIRATORY: Breath sounds equal bilaterally. No accessory muscle use. BREASTS: Bilateral exam showed no masses , no retractions, no nipple discharge. ABDOMEN/GI: Abdomen soft, non-tender, bowel sounds present, no rebound, no guarding Gravid to [-37] weeks size Fundal Height: [-] GENITOURINARY: External Genitalia: intact and normal in appearance BUS glands: [-Normal] Cervix: [-Posterior] Dilatation: [-3] Effacement: [-70] Station: [--3] Presentation: [-Vertex] Membranes: [intact] Uterine Contractions: [-Irritability with irregular contractions every 3-8 minutes] FHT's: Category: [-1] Baseline: [140-] Reactive: [-Moderate] Variability: [-Moderate] Decels: [Absent-] EXTREMITIES: No cyanosis or edema. BACK: Nontender without obvious deformity. No CVA tenderness. NEUROLOGICAL: Awake and alert. Motor and sensory grossly within normal limits. Five out of 5 muscle strength in all muscle groups. Normal speech. Data Data Vital Signs Reviewed: Yes Group B Strep: Negative MDM Medical Record Reviewed: Yes Plan 31-year-old with a previous section who desires No cervical change since her appointment last week, contractions palpate mild Offered patient a 23 hour observation to watch her cervix, offered pain medication during this admission the patient states that she was here with her last admission for 17 hours without cervical change and does not desire to stay. 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 Diagnosis Diagnosis: Primary Impression: 39 weeks gestation of Additional Impressions: Previous delivery affecting , antepartum Desires (vaginal after ) trial Disposition: 01 DISCHARGE HOME Jojo Parada MD Apr 29, 2017 02:10
== END 2017-04-29 02:20 | disposition home or self-care (01) ==
LOC: HOBED 01:30
DX: O47.1 False labor at or after 37 completed weeks of gestation (principal); Z3A.39 39 weeks gestation of pregnancy; Z79.899 Other long term (current) drug therapy; Z88.0 Allergy status to penicillin; Z88.1 Allergy status to other antibiotic agents; Z88.5 Allergy status to narcotic agent
CPT/HCPCS: 99283

== ENCOUNTER 2017-04-29 09:29 | Inpatient (IN) | payer OTHER ==
[~2017-04-29] VITALS: Ht 175.3 cm; Wt 79.8 kg
[2017-04-29] VITALS (59 sets, daily range): BP systolic 95–132; BP diastolic 50–77; PULSE 71–110; RESP 16–18; TEMP 97.8–98.2
--- NOTE | 2017-04-29 10:02 | PD ---
HPI Chief Complaint Labor Date Seen: Apr 29, 2017 Travel History International Travel<30 Days: No Contact w/Intl Traveler<30Days: No History of Present Illness HPI Mrs. Darby is a 31-year-old who is at 39/1 weeks gestation today [facility]. Patient was seen and evaluated yesterday in the [facility] and found to be 3-4cm dilated, 50% effaced, and a -2 station. She was monitored, but had no cervical change. She was offered 23 hour observation, but declined admission. Since leaving the [facility] she states that she has had regular contractions currently at 2-3 minutes apart. This morning she was evaluated at the [facility] this morning with her cervical exam progressing to 5cm dilation, 100% effacement, and -1 station with bulging bag, per chart review. She was then sent to the OB ED for active labor. She has had a previous , but desires a at this time. Weeks Gestation: 39 Para: 1 : 4 History Past Medical History Medical History: Denies Significant Hx Obstetric History Obstetric History 2 spontaneous abortions delivery at 35 weeks via Past Surgical History Narrative Surgical Uncomplicated Tonsillectomy Knee surgery Family History Family History: Negative Social History Narrative Social History Denies alcohol, tobacco, and substance abuse since she found out she was Endorses tobacco, alcohol, and marijuana use prior to finding out about Allergies-Medications (Allergen,Severity, Reaction): Coded Allergies: amoxicillin (Verified Allergy, Severe, 04/29/17) ciprofloxacin (Verified Allergy, Severe, 04/29/17) clavulanic acid (Verified Allergy, Severe, 04/29/17) Home Meds Active Scripts Ranitidine (Zantac) 150 Mg Tab, 150 MG PO BID for Reduce Stomach Acid, #60 TAB 6 Refills Prov:Monse Walls 03/04/17 Reported Medications Vit W/ Docusate-Fe Fu ( 19) 1 Tab Tab 11/06/16 Discontinued Scripts Terconazole Vaginal Cream (Terconazole Vaginal Cream) 0.8 % Cream, 1 APPL VAGINAL HS for Fungal Infection, #20 GM 0 Refills For 3 days. Prov:Cherrie Ireland 04/24/17 Acyclovir (Acyclovir) 800 Mg Tab, 800 MG PO DAILY for Mgmt Viral Infection for 30 Days, TAB 0 Refills Prov:Cherrie Ireland [facility] 04/20/17 Review of Systems Except as stated in HPI: all other systems reviewed are Neg Physical Exam Narrative GENERAL: Well-nourished, well-developed patient. SKIN: Warm and dry. HEAD: Normocephalic and atraumatic. EYES: No scleral icterus. No injection or drainage. ENT: No nasal drainage noted. Mucous membranes pink. Airway patent. NECK: Supple, trachea midline. No JVD. CARDIOVASCULAR: Regular rate and rhythm without murmurs, gallops, or rubs. RESPIRATORY: Breath sounds equal bilaterally. No accessory muscle use. BREASTS: Bilateral exam showed no masses , no retractions, no nipple discharge. ABDOMEN/GI: Abdomen soft, non-tender, bowel sounds present, no rebound, no guarding Gravid to 39 weeks size GENITOURINARY: External Genitalia: intact and normal in appearance Cervix: Mid-Posterior Dilatation: 4-5cm Effacement: 100% Station: -1 Presentation: Vertex Membranes: Bulging Uterine Contractions: Q2/3 min per patient FHT's: Category: 1 Baseline: 140 Reactive: Positive Variability: Moderate Decels: None EXTREMITIES: No cyanosis or edema. BACK: Nontender without obvious deformity. No CVA tenderness. NEUROLOGICAL: Awake and alert. Motor and sensory grossly within normal limits. Five out of 5 muscle strength in all muscle groups. Normal speech. Data Data Vital Signs Reviewed: Yes Group B Strep: Negative MDM Medical Record Reviewed: Yes Plan Mrs. Darby is a at 39/1 presenting in active labor. 1. at 39 weeks gestation in active labor -Admit to OB, admission orders placed -Continue routine OB care -GBS negative -Plan for -Patient does not wish to have epidural anesthesia at this time 2. UTI -UA: Trace ketones, moderate occult blood, large leukocyte esterase, 8 WBC, 10 RBC, rare bacteria, white blood cell clumps, culture indicated -Patient asymptomatic, will defer on treatment at this time SDW: Quinton Higginbotham MD R2 Apr 29, 2017 10:02
[2017-04-29] MEDS ORDERED: LACTATED RINGER'S 1000 ML INJ 1,000 ML IV SCH (10:14)
[2017-04-29] MEDS ORDERED: LACTATED RINGER'S 1000 ML INJ 1,000 ML IV PRN (10:14)
[2017-04-29] MEDS ORDERED: MINERAL OIL 10 ML VIAL TOPICAL PRN (10:15)
[2017-04-29] MEDS ORDERED: ONDANSETRON HCL 4 MG/2 ML VIAL IV PRN (10:15)
[2017-04-29] MEDS ORDERED: CITRIC ACID-SODIUM CITRATE LIQ 30 ML UDC PO SCH (10:15)
[2017-04-29] MEDS ORDERED: SODIUM CHLORID 0.9% 500 ML INJ 500 ML IV PRN (10:15)
[2017-04-29] MEDS ORDERED: OXYTOCIN 30 UNITS-500ML PREMIX 500 ML IV ONE (10:15)
[2017-04-29] MEDS ORDERED: LIDOCAINE HCL 1% 50 ML VIAL INFIL PRN (10:15)
[2017-04-29] MEDS ORDERED: LIDOCAINE HCL 1% 50 ML VIAL I-DERMAL PRN (10:15)
[2017-04-29] MEDS ORDERED: SODIUM CHLOR 0.9% 1000 ML INJ 1,000 ML IV PRN (10:34)
[2017-04-29 11:00] LABS: AUTOMATED NEUTROPHIL # 14.2 TH/MM3 (1.8-7.7); BASOPHIL # 0.1 TH/MM3 (0-0.2); BASOPHIL % 0.6 % (0.0-2.0); EOSINOPHIL % 0.1 % (0.0-4.0); HEMATOCRIT 35.5 % (35.0-46.0); HEMO FLAGS DIFF FINAL; LYMPH % 7.3 % (9.0-44.0); LYMPHOCYTE # 1.2 TH/MM3 (1.0-4.8); MEAN CELL VOLUME 85.2 FL (80.0-100.0); MEAN CORPUSCULAR HEMOGLOBIN 28.5 PG (27.0-34.0); MEAN CORPUSCULAR HGB CONC 33.4 % (32.0-36.0); MONO % 6.1 % (0.0-8.0); NEUT % 85.9 % (16.0-70.0); PLATELET COUNT 153 TH/MM3 (150-450); RED BLOOD COUNT 4.17 MIL/MM3 (4.00-5.30); RED CELL DISTRIBUTION WIDTH 12.8 % (11.6-17.2); WHITE BLOOD COUNT 16.5 TH/MM3 (4.0-11.0)
[2017-04-29 11:18] LABS: BACTERIA, URINE RARE /hpf; BLOOD, URINE MOD (NEG); COMMENT (UR) CULTURE INDICATED; CULTURE IF INDICATED CULTURE INDICATED; GLUCOSE,URINE NEG (NEG); KETONE, URINE TRACE mg/dL (NEG); MUCUS URINE FEW /lpf (OCC); NITRITE,URINE NEG (NEG); URINE COLOR LIGHT-YELLOW (YELLW/STRAW)
[2017-04-29] MEDS ORDERED: DIPHTH/TETANUS/ACEL PERTUSSIS (BOOSTER) 0.5 ML VIAL/PFS IM ONE (16:00)
[2017-04-29] MEDS ORDERED: MEASLES, MUMPS, RUBELLA VACCINE 0.5 ML VIAL SQ ONE (16:00)
--- NOTE | 2017-04-29 17:21 | HHI.HP ---
History & Physical H&P HPI Chief Complaint Labor Date Seen: Apr 29, 2017 Travel History International Travel<30 Days: No Contact w/Intl Traveler<30Days: No History of Present Illness HPI Mrs. Darby is a 31-year-old who is at 39/1 weeks gestation today [facility]. Patient was seen and evaluated yesterday in the [facility] and found to be 3-4cm dilated, 50% effaced, and a -2 station. She was monitored, but had no cervical change. She was offered 23 hour observation, but declined admission. Since leaving the [facility] she states that she has had regular contractions currently at 2-3 minutes apart. This morning she was evaluated [facility] this morning with her cervical exam progressing to 5cm dilation, 100% effacement, and -1 station with bulging bag, per chart review. She was then sent to the OB ED for active labor. She has had a previous , but desires a at this time. Weeks Gestation: 39 Para: 1 : 4 History (Limited) History Past Medical History Medical History: Denies Significant Hx Obstetric History Obstetric History 2 spontaneous abortions delivery at 35 weeks via Past Surgical History Narrative Surgical Uncomplicated Tonsillectomy Knee surgery Family History Family History: Negative Social History Narrative Social History Denies alcohol, tobacco, and substance abuse since she found out she was Endorses tobacco, alcohol, and marijuana use prior to finding out about Allergies-Medications Allergies-Medications (Allergen,Severity, Reaction): Coded Allergies: amoxicillin (Verified Allergy, Severe, 04/29/17) ciprofloxacin (Verified Allergy, Severe, 04/29/17) clavulanic acid (Verified Allergy, Severe, 04/29/17) Home Meds Active Scripts Ranitidine (Zantac) 150 Mg Tab, 150 MG PO BID for Reduce Stomach Acid, #60 TAB 6 Refills Prov:Monse Walls 03/04/17 Reported Medications Vit W/ Docusate-Fe Fu ( 19) 1 Tab Tab 11/06/16 Discontinued Scripts Terconazole Vaginal Cream (Terconazole Vaginal Cream) 0.8 % Cream, 1 APPL VAGINAL HS for Fungal Infection, #20 GM 0 Refills For 3 days. Prov:Cherire Ireland 04/24/17 Acyclovir (Acyclovir) 800 Mg Tab, 800 MG PO DAILY for Mgmt Viral Infection for 30 Days, TAB 0 Refills Prov:Cherrie Ireland 04/20/17 ROS Review of Systems Except as stated in HPI: all other systems reviewed are Neg Physical Exam Physical Exam Narrative GENERAL: Well-nourished, well-developed patient. SKIN: Warm and dry. HEAD: Normocephalic and atraumatic. EYES: No scleral icterus. No injection or drainage. ENT: No nasal drainage noted. Mucous membranes pink. Airway patent. NECK: Supple, trachea midline. No JVD. CARDIOVASCULAR: Regular rate and rhythm without murmurs, gallops, or rubs. RESPIRATORY: Breath sounds equal bilaterally. No accessory muscle use. BREASTS: Bilateral exam showed no masses , no retractions, no nipple discharge. ABDOMEN/GI: Abdomen soft, non-tender, bowel sounds present, no rebound, no guarding Gravid to 39 weeks size GENITOURINARY: External Genitalia: intact and normal in appearance Cervix: Mid-Posterior Dilatation: 4-5cm Effacement: 100% Station: -1 Presentation: Vertex Membranes: Bulging Uterine Contractions: Q2/3 min per patient FHT's: Category: 1 Baseline: 140 Reactive: Positive Variability: Moderate Decels: None EXTREMITIES: No cyanosis or edema. BACK: Nontender without obvious deformity. No CVA tenderness. NEUROLOGICAL: Awake and alert. Motor and sensory grossly within normal limits. Five out of 5 muscle strength in all muscle groups. Normal speech. Data Data Data Vital Signs Reviewed: Yes Group B Strep: Negative MDM MDM Medical Record Reviewed: Yes Plan Mrs. Darby is a at 39/1 presenting in active labor. 1. at 39 weeks gestation in active labor -Admit to OB, admission orders placed -Continue routine OB care -GBS negative -Plan for -Patient does not wish to have epidural anesthesia at this time 2. UTI -UA: Trace ketones, moderate occult blood, large leukocyte esterase, 8 WBC, 10 RBC, rare bacteria, white blood cell clumps, culture indicated -Patient asymptomatic, will defer on treatment at this time SDW: Quinton Higginbotham MD R2 Apr 29, 2017 17:21
[2017-04-29] MEDS ORDERED: OXYTOCIN 30 UNITS-500ML PREMIX 500 ML IV SCH (18:45)
[2017-04-29] MEDS ORDERED: ONDANSETRON ODT 4 MG TAB PO PRN (18:45)
[2017-04-29] MEDS ORDERED: SODIUM CHLORIDE 0.9% FLUSH 10 ML FLUSH IV FLUSH PRN (18:45)
[2017-04-29] MEDS ORDERED: BENZOCAINE 20% TOPICAL SPRAY 60 ML CAN TOPICAL PRN (18:45)
[2017-04-29] MEDS ORDERED: ALUMINUM/MAGNESIUM/SIMETH 30 ML CUP PO PRN (18:45)
[2017-04-29] MEDS ORDERED: ZOLPIDEM TARTRATE 5 MG TAB PO PRN (18:45)
[2017-04-29] MEDS ORDERED: ACETAMINOPHEN 325 MG TAB PO PRN (18:45)
[2017-04-29] MEDS ORDERED: oxyCODONE/ACETAMINOPHEN 5 MG/325 MG TAB PO PRN (18:45)
[2017-04-29] MEDS ORDERED: WITCH HAZEL 50%/GLYCERIN 12.5% 40 PAD JAR TOPICAL PRN (18:45)
--- NOTE | 2017-04-29 18:51 | PD.OB.DELI ---
Weeks gestation: 39 Gest age assessed date: Apr 29, 2017 Gest age assessed time: 18:47 Pt started active labor?: Yes Medical induction of labor?: No Artificial rupture of membrane: Yes Anesthesia: Lidocaine local to perineum Episiotomy: Midline Vaginal Delivery: Normal, Presentation: Occiput anterior Nuchal Cord: x1 Delayed cord clamping (45 sec): Yes Infant: Female Delivery date: Apr 29, 2017 Delivery time: 18:13 One Minute : 9 Five Minute : 9 Weight: 3340 Placenta: Spontaneous delivery Laceration: Episiotomy, 2 deg Repair: Chromic running Estimated blood loss: [address] Noriega performed delivery, assisted by Dr. Ventura and Dr. Guerrero. Da Noriega MD R1 Apr 29, 2017 18:51
[2017-04-29] MEDS: IBUPROFEN 600 MG TAB PO PRN (19:25)
[2017-04-29] MEDS: oxyCODONE/ACETAMINOPHEN 5 MG/325 MG TAB PO PRN ×2 (19:25→23:55)
[2017-04-29] MEDS ORDERED: SODIUM CHLORIDE 0.9% FLUSH 10 ML FLUSH IV FLUSH SCH (21:00)
--- NOTE | 2017-04-30 07:29 | HHI.OB ---
Subjective Post Day: 1 Remarks Pt seen and examined this morning. day #1 AFVSS overnight. Decreased lochia. Denies dysuria. No breast tenderness. She is feeding the baby via breast. Appetite good. No nausea or vomiting. Patient has not yet had a bowel movement or flatus. Ambulating well. Denies calf pain or shortness of breath. Otherwise, she is doing well this morning and has no other concerns. Objective Vitals/I&O Vital Signs Date Time Temp Pulse Resp B/P (MAP) Pulse Ox O2 Delivery O2 Flow Rate FiO2 04/29/17 21:43 74 95/50 (65) 04/29/17 21:43 97.8 18 04/29/17 20:40 18 04/29/17 20:30 82 116/62 (80) 04/29/17 20:15 84 112/68 (83) 04/29/17 20:01 91 119/65 (83) 04/29/17 19:55 18 04/29/17 19:45 80 112/69 (83) 04/29/17 19:30 80 109/61 (77) 04/29/17 19:15 98.1 87 18 109/71 (84) 04/29/17 19:08 18 04/29/17 19:01 89 113/66 (82) 04/29/17 18:50 16 04/29/17 18:46 96 130/70 (90) 04/29/17 18:35 102 132/63 (86) 04/29/17 18:34 98.0 103 18 127/63 (84) 04/29/17 17:10 110 04/29/17 17:06 97 129/77 (94) 04/29/17 17:05 94 04/29/17 17:00 85 04/29/17 16:28 98.2 18 04/29/17 16:20 88 04/29/17 16:15 73 04/29/17 15:45 18 04/29/17 15:40 77 111/72 (85) 04/29/17 15:40 83 04/29/17 15:35 84 04/29/17 15:30 73 04/29/17 14:25 76 04/29/17 12:59 77 106/57 (73) 04/29/17 12:55 87 04/29/17 12:50 87 04/29/17 12:45 85 04/29/17 12:40 85 04/29/17 12:35 79 04/29/17 12:25 86 04/29/17 12:20 87 04/29/17 12:15 86 04/29/17 12:08 16 04/29/17 12:05 78 100/58 (72) 04/29/17 12:05 78 04/29/17 12:00 86 04/29/17 11:55 87 04/29/17 11:50 83 04/29/17 11:45 80 04/29/17 11:35 87 04/29/17 11:30 85 04/29/17 11:25 85 04/29/17 11:20 81 04/29/17 11:15 86 04/29/17 11:10 71 04/29/17 11:08 18 04/29/17 11:05 85 04/29/17 11:01 79 111/70 (84) 04/29/17 11:00 77 04/29/17 10:30 90 04/29/17 10:25 88 04/29/17 10:20 87 04/29/17 10:15 87 04/29/17 10:10 92 04/29/17 10:05 99 04/29/17 10:00 90 Objective Remarks GENERAL: Well-nourished, well-developed patient. CARDIOVASCULAR: Regular rate and rhythm without murmurs, gallops, or rubs. RESPIRATORY: Breath sounds equal bilaterally. No accessory muscle use. ABDOMEN/GI: Abdomen soft, non-tender. Fundus: Firm, non-tender at umbilicus. GENITOURINARY: Light to moderate bleeding. EXTREMITIES: No cyanosis or edema, non-tender, without signs of DVT. Medications and IVs Current Medications Medications (Trade) Dose Ordered Sig/Jabari Route Start Time Stop Time Status Last Admin Lactated Ringer's 1,000 ml @ 125 mls/hr Q8H IV 04/29/17 10:14 04/29/17 10:29 Lactated Ringer's 1,000 ml @ 3,000 mls/hr Q20M PRN IV 04/29/17 10:14 Sodium Chloride 500 ml @ 1,000 mls/hr ONCE PRN IV 04/29/17 10:15 04/30/17 10:14 Sodium Chloride 1,000 ml @ 100 mls/hr Q10H PRN IV 04/29/17 10:34 (NS Flush) 2 ml BID IV FLUSH 04/29/17 21:00 (NS Flush) 2 ml UNSCH PRN IV FLUSH 04/29/17 18:45 (Tylenol) 650 mg Q4H PRN PO 04/29/17 18:45 (Motrin) 600 mg Q6H PRN PO 04/29/17 18:45 04/29/17 19:25 (Percocet 5-325 Mg) 1 tab Q4H PRN PO 04/29/17 18:45 04/29/17 23:55 (Percocet 5-325 Mg) 2 tab Q4H PRN PO 04/29/17 18:45 (Americaine 20% Top Spr) 1 spray Q4H PRN TOPICAL 04/29/17 18:45 (Tucks Pads) 1 applic QID PRN TOPICAL 04/29/17 18:45 (Georgette-Colace) 2 tab Q12H PRN PO 04/29/17 18:45 (Ambien) 5 mg HS PRN PO 04/29/17 18:45 (Mag-Al Plus Susp Liq) 15 ml Q8H PRN PO 04/29/17 18:45 (Zofran Odt) 4 mg Q6H PRN PO 04/29/17 18:45 Assessment/Plan Problem List: (1) (spontaneous vaginal delivery) ICD Codes: O80 - Encounter for full-term uncomplicated delivery Status: Acute Assessment and Plan 31 y/o female who is PPD #1 s/p last . -Continue routine care. -Percocet and Motrin PRN pain. -Encouraged OOB. Advised pelvic rest for 6 wks. -Re: ctrl, she would like consider her options. -Anticipate discharge tomorrow, 05/01. MD Leann Turner Dr., Nally D MD R1 Apr 30, 2017 07:29
[2017-04-30 08:13] VITALS: BP 91/59; PULSE 80; RESP 16; TEMP 97.9; O2SAT 98
[2017-04-30] MEDS: IBUPROFEN 600 MG TAB PO PRN ×3 (08:35→20:38)
[2017-04-30] MEDS: DOCUSATE SODIUM 50 MG/SENNA 8.6 MG TAB PO PRN (08:36)
[2017-04-30] MEDS: oxyCODONE/ACETAMINOPHEN 5 MG/325 MG TAB PO PRN ×3 (08:36→20:38)
[2017-04-30 20:33] VITALS: BP 112/61; PULSE 75; RESP 18; TEMP 98
[2017-05-01 08:00] VITALS: BP 113/65; PULSE 69; RESP 16; TEMP 97.9
--- NOTE | 2017-05-01 08:03 | HHI.OB ---
Subjective Post Day: 2 Remarks Pt seen and examined this morning. day #2 AFVSS overnight. Decreased lochia. Denies dysuria. No breast tenderness. She is feeding the baby via breast. Appetite good. No nausea or vomiting. Patient has not yet had a bowel movement. Ambulating well. Denies calf pain or shortness of breath. This am patient reported her room was really cold and she had chills. Room temp was increased, VS were taken by nurse at the time temp: 87.6, BP; 113/65. Chills resolved shortly after and pt stated she was feeling better. Otherwise, has no other concerns. Objective Vitals/I&O Vital Signs Date Time Temp Pulse Resp B/P (MAP) Pulse Ox O2 Delivery O2 Flow Rate FiO2 04/30/17 20:33 98.0 18 04/30/17 20:33 75 112/61 (78) 04/30/17 09:35 16 04/30/17 09:35 16 04/30/17 08:13 97.9 80 16 91/59 (70) 98 Objective Remarks GENERAL: Well-nourished, well-developed patient. CARDIOVASCULAR: Regular rate and rhythm without murmurs, gallops, or rubs. RESPIRATORY: Breath sounds equal bilaterally. No accessory muscle use. ABDOMEN/GI: Abdomen soft, non-tender. Fundus: Firm, non-tender at umbilicus. GENITOURINARY: Light to moderate bleeding. EXTREMITIES: No cyanosis or edema, non-tender, without signs of DVT. Medications and IVs Current Medications Medications (Trade) Dose Ordered Sig/[facility] Route Start Time Stop Time Status Last Admin Lactated Ringer's 1,000 ml @ 125 mls/hr Q8H IV 04/29/17 10:14 04/29/17 10:29 Lactated Ringer's 1,000 ml @ 3,000 mls/hr Q20M PRN IV 04/29/17 10:14 Sodium Chloride 1,000 ml @ 100 mls/hr Q10H PRN IV 04/29/17 10:34 (NS Flush) 2 ml BID IV FLUSH 04/29/17 21:00 (NS Flush) 2 ml UNSCH PRN IV FLUSH 04/29/17 18:45 (Tylenol) 650 mg Q4H PRN PO 04/29/17 18:45 (Motrin) 600 mg Q6H PRN PO 04/29/17 18:45 04/30/17 20:38 (Percocet 5-325 Mg) 1 tab Q4H PRN PO 04/29/17 18:45 04/30/17 20:38 (Percocet 5-325 Mg) 2 tab Q4H PRN PO 04/29/17 18:45 05/01/17 00:37 (Americaine 20% Top Spr) 1 spray Q4H PRN TOPICAL 04/29/17 18:45 (Tucks Pads) 1 applic QID PRN TOPICAL 04/29/17 18:45 (Georgette-Colace) 2 tab Q12H PRN PO 04/29/17 18:45 04/30/17 08:36 (Ambien) 5 mg HS PRN PO 04/29/17 18:45 (Mag-Al Plus Susp Liq) 15 ml Q8H PRN PO 04/29/17 18:45 (Zofran Odt) 4 mg Q6H PRN PO 04/29/17 18:45 Assessment/Plan Problem List: (1) (spontaneous vaginal delivery) ICD Codes: O80 - Encounter for full-term uncomplicated delivery Status: Acute Assessment and Plan 31 y/o female who is PPD #2 s/p last . -Encouraged OOB. Advised pelvic rest for 6 wks. -Re: ctrl, she would like consider her options. -discharge today. pt advised to f/u with parking lot supervisor in 6 wks. - Pt given scripts for ibuprofen and senna dw MD Leann Hartman Nally D MD R1 May 01, 2017 08:03
[2017-05-01] MEDS ORDERED: SENN1TAB PO (08:09)
[2017-05-01] MEDS ORDERED: IBUP-232 PO (08:09)
--- NOTE | 2017-05-01 08:09 | HHI.DCPOC ---
Discharge Care Plan Diagnosis: (1) (spontaneous vaginal delivery) Report Symptoms to Your Doctor -Temperature above 100.5 degrees -Redness, of incision or excessive or foul smelling drainage -Unusual pain or calf pain -Increased vaginal bleeding -Painful or difficulty urinating -Feelings of extreme sadness or anxiety after 2 weeks Goals to Promote Your Health * To prevent worsening of your condition and complications * To maintain your health at the optimal level Directions to Meet Your Goals Take your medications as prescribed Follow your dietary instruction Follow activity as directed Ensure plenty of rest for recovery Drink fluids for hydration Keep your appointments as scheduled Take your immunizations and boosters as scheduled If your symptoms worsen call your PCP, if no PCP go to Urgent Care Center or Emergency Room Smoking is Dangerous to Your Health. Avoid second hand smoke Call the 24-hour crisis hotline for domestic abuse at Quinton Dietrich MD R2 May 01, 2017 08:09
[2017-05-01] MEDS: IBUPROFEN 600 MG TAB PO PRN (08:36)
[2017-05-01] MEDS: oxyCODONE/ACETAMINOPHEN 5 MG/325 MG TAB PO PRN (08:36)
[2017-05-01] MEDS: DOCUSATE SODIUM 50 MG/SENNA 8.6 MG TAB PO PRN (08:36)
== END 2017-05-01 12:24 | disposition home or self-care (01) | DRG 775 ==
LOC: HOBED 09:29 → H2EA 10:23 → H1EA 21:03
PROVIDERS: ADMIT Obstetrics & Gynecology Maternal & Fetal Medicine; ATTEND Obstetrics & Gynecology Maternal & Fetal Medicine
PROC: 10E0XZZ Delivery of Products of Conception, External Approach (ICD-10-PCS; principal; 2017-04-29)
PROC: 0KQM0ZZ Repair Perineum Muscle, Open Approach (ICD-10-PCS; 2017-04-29)
PROC: 10907ZC Drainage of Amniotic Fluid, Therapeutic from Products of Conception, Via Natural or Artificial Opening (ICD-10-PCS; 2017-04-29)
PROC: 0W8NXZZ Division of Female Perineum, External Approach (ICD-10-PCS; 2017-04-29)
DX: O34.211 Maternal care for low transverse scar from previous cesarean delivery (principal); O69.81X0 Labor and delivery complicated by cord around neck, without compression, not applicable or unspecified; Z37.0 Single live birth; Z3A.39 39 weeks gestation of pregnancy
CPT/HCPCS: 81001; 85025; 86900; 86901; 87086; 90715; 99283; J2590; J3010; J7120